=== PATIENT | female | born 1960 | race Caucasian/White ===

== ENCOUNTER 2019-06-30 11:34 | Emergency (ER) | payer MEDICAID ==
[~2019-06-30] VITALS: Ht 160 cm; Wt 75.0 kg
[2019-06-30] MEDS ORDERED: ATEN25TA PO (11:43)
[2019-06-30] MEDS ORDERED: METF-960 PO (11:43)
[2019-06-30 11:51] LABS: GLUCOSE,POINT OF CARE 109 MG/DL (70-110)
[2019-06-30] MEDS ORDERED: IBUPROFEN 800 MG TABLET PO ONE (13:30)
[2019-06-30 13:49] VITALS: BP 145/75
== END 2019-06-30 14:09 | disposition home or self-care (01) ==
LOC: EMS 11:38
DX: S63.91XA Sprain of unspecified part of right wrist and hand, initial encounter (principal); S60.031A Contusion of right middle finger without damage to nail, initial encounter; S60.041A Contusion of right ring finger without damage to nail, initial encounter; E11.9 Type 2 diabetes mellitus without complications; E78.00 Pure hypercholesterolemia, unspecified; W01.0XXA Fall on same level from slipping, tripping and stumbling without subsequent striking against object, initial encounter; Y93.89 Activity, other specified; Y92.89 Other specified places as the place of occurrence of the external cause; Y99.8 Other external cause status